=== PATIENT | female | born 1980 | race American Indian/Alaskan Native ===

== ENCOUNTER 2017-09-29 00:24 | Emergency (ER) | payer OTHER ==
[2017-09-29 00:41] VITALS: BP 139/91
[2017-09-29 03:28] LABS: Basophils % (Auto) 0.6 % (0.0-1.8); Eosinophils # (Auto) 0.1 K/mm3 (0.0-0.4); Eosinophils % (Auto) 0.9 % (0.0-4.3); Hematocrit 35.6 % (30.3-42.9); Hemoglobin 11.7 gm/dl (10.1-14.3); Lymphocytes # (Auto) 2.2 K/mm3 (1.2-5.4); Lymphocytes % (Auto) 27.2 % (13.4-35.0); Mean Corpuscular HGB Conc 33 % (30-34); Mean Corpuscular Hemoglobin 29 pg (28-32); Mean Corpuscular Volume 87 fl (79-97); Monocytes # (Auto) 0.7 K/mm3 (0.0-0.8); Monocytes % (Auto) 8.1 % (0.0-7.3); Platelet Count 236 K/mm3 (140-440); Red Blood Count 4.07 M/mm3 (3.65-5.03)
[2017-09-29 03:37] LABS: INR 2.06 (0.87-1.13)
[2017-09-29 03:38] LABS: Partial Thromboplastin Time 48.9 Sec. (24.2-36.6)
[2017-09-29 04:03] LABS: Calcium 9.4 mg/dL (8.4-10.2); Hemolysis Index 7
[2017-09-29 04:23] LABS: BUN/Creatinine Ratio 18; Blood Urea Nitrogen 11 mg/dL (7-17)
== END 2017-09-29 03:00 | disposition left against medical advice (07) ==
LOC: ED 00:24
DX: R53.1 Weakness (principal); Z53.21 Procedure and treatment not carried out due to patient leaving prior to being seen by health care provider
CPT/HCPCS: 36415; 80048; 85025; 85610; 85730

== ENCOUNTER 2020-01-16 20:31 | Emergency (ER) | payer SELFPAY ==
[2020-01-17] MEDS ORDERED: SODIUM CHLORIDE 0.9% 1000 ML 1,000 ML IV ONE ×2 (00:04→03:13)
[2020-01-17] MEDS ORDERED: MORPHINE 4 MG/1 ML INJ IV ONE (00:04)
[2020-01-17] MEDS ORDERED: ONDANSETRON 4 MG/2 ML INJ IV ONE (00:04)
[2020-01-17] MEDS ORDERED: FAMOTIDINE 20 MG/2 ML INJ IV ONE (00:04)
--- NOTE | 2020-01-17 00:41 | Emergency Department Report ---
ED N/V/D HPI - General Chief complaint: Nausea/Vomiting/Diarrhea Stated complaint: VOMITING, UNABLE TO EAT OR DRINK X'S 2 DAYS Source: patient Mode of arrival: Ambulatory Limitations: No Limitations - History of Present Illness Initial comments: Patient is a 39-year-old -[place] female with a history of PE and status post gastric sleeve surgery for weight loss who presents to the ED with complaint of acute onset persistent diffuse abdominal pain with nausea and vomiting for the last 2 days. Patient states that she has not been able to keep anything down including food and water since the onset of the symptoms. Patient states that no one else at home is had similar symptoms except herself. Patient denies dizziness, syncope, headache, chest pain, lightheadedness, fever, chills, cough, sore throat, dysuria, urinary frequency and urgency, vaginal discharge or vaginal bleeding, back pain, hematemesis, hematochezia or dyspareunia. MD complaint: nausea, vomiting, abdominal pain -: Sudden, week(s) (1) Description of Vomiting: food contents, watery Associated Abdominal Pain: Yes (diffuse) Location: diffuse, epigastric Radiation: none Severity: severe Pain Scale: 8 Quality: cramping, sharp Consistency: constant Improves with: none Worsens with: eating, vomiting Context: possible food poisoning Associated Symptoms: denies other symptoms, myalgias, loss of appetite, malaise, nausea/vomiting. denies: chest pain, cough, diaphoresis, fever/chills, headaches, rash, dysuria, shortness of breath, syncope, weakness, other - Related Data Previous Rx's Medication Instructions Recorded Last Taken Type Dicyclomine [Bentyl] 20 mg PO Q6H PRN #30 tablet 01/17/20 Unknown Rx Famotidine [Pepcid] 20 mg PO BID #60 tablet 01/17/20 Unknown Rx Ondansetron [Zofran Odt] 4 mg PO Q6HR PRN #20 tab.rapdis 01/17/20 Unknown Rx Promethazine [Phenergan] 25 mg KS Q6HR PRN #15 supp.rect 01/17/20 Unknown Rx Allergies Allergy/AdvReac Type Severity Reaction Status Date / Time IV contrast Allergy Hives Uncoded 09/29/17 02:46 ED Review of Systems ROS: Stated complaint: VOMITING, UNABLE TO EAT OR DRINK X'S 2 DAYS Other details as noted in HPI Constitutional: denies: chills, fever Eyes: denies: eye pain, eye discharge, vision change ENT: denies: ear pain, throat pain Respiratory: denies: cough, shortness of breath, wheezing Cardiovascular: denies: chest pain, palpitations Endocrine: no symptoms reported Gastrointestinal: abdominal pain, nausea, vomiting. denies: diarrhea Genitourinary: denies: urgency, dysuria, discharge Musculoskeletal: denies: back pain, joint swelling, arthralgia Skin: denies: rash, lesions Neurological: denies: headache, weakness, paresthesias Psychiatric: denies: anxiety, depression Hematological/Lymphatic: denies: easy bleeding, easy bruising ED Past Medical Hx - Past Medical History Additional medical history: PE - Surgical History Additional Surgical History: Gastic Sleeve - Social History Smoking Status: Never Smoker Substance Use Type: None - Medications Home Medications: Home Medications Medication Instructions Recorded Confirmed Last Taken Type Dicyclomine [Bentyl] 20 mg PO Q6H PRN #30 tablet 01/17/20 Unknown Rx Famotidine [Pepcid] 20 mg PO BID #60 tablet 01/17/20 Unknown Rx Ondansetron [Zofran Odt] 4 mg PO Q6HR PRN #20 tab.rapdis 01/17/20 Unknown Rx Promethazine [Phenergan] 25 mg KS Q6HR PRN #15 supp.rect 01/17/20 Unknown Rx ED Physical Exam - General Limitations: No Limitations General appearance: alert, in no apparent distress - Head Head exam: Present: atraumatic, normocephalic, normal inspection - Eye Eye exam: Present: normal appearance, PERRL, EOMI Pupils: Present: normal accommodation - ENT ENT exam: Present: normal exam, normal orophraynx, mucous membranes moist, TM's normal bilaterally, normal external ear exam - Neck Neck exam: Present: normal inspection, full ROM. Absent: tenderness - Respiratory Respiratory exam: Present: normal lung sounds bilaterally. Absent: respiratory distress, wheezes, rales, rhonchi, chest wall tenderness, decreased breath s ounds, prolonged expiratory - Cardiovascular Cardiovascular Exam: Present: normal rhythm, tachycardia, normal heart sounds. Absent: systolic murmur, diastolic murmur, rubs, gallop - GI/Abdominal GI/Abdominal exam: Present: soft, tenderness (Palpable diffuse abdominal tenderness, worse in the epigastric area), normal bowel sounds. Absent: guarding, rebound, hyperactive bowel sounds, organomegaly, mass, bruit - Extremities Exam Extremities exam: Present: normal inspection, full ROM, normal capillary refill - Back Exam Back exam: Present: normal inspection, full ROM. Absent: tenderness, CVA tenderness (R), CVA tenderness (L), muscle spasm, paraspinal tenderness, vertebral tenderness - Neurological Exam Neurological exam: Present: alert, oriented X3, CN II-XII intact, normal gait, reflexes normal - Psychiatric Psychiatric exam: Present: normal affect, normal mood - Skin Skin exam: Present: warm, dry, intact, normal color. Absent: rash ED Course Vital Signs 01/16/20 01/17/20 01/17/20 20:58 01:06 01:36 Temperature 98.3 F Pulse Rate 105 H Respiratory 20 20 20 Rate Blood Pressure 117/86 O2 Sat by Pulse 97 Oximetry ED Medical Decision Making - Lab Data Result diagrams: 01/17/20 00:29 01/17/20 00:29 - Radiology Data Radiology results: report reviewed, image reviewed Findings [facility] [address] [place] [address] Cat Scan Report Signed Patient: FOUZIA MERCEDES MR#: [id number] : 1980 Acct:[id number] Age/Sex: 39 / F ADM Date: 01/16/20 Loc: ED Attending Dr: Ordering Physician: DENI AZAR Date of Service: 01/17/20 Procedure(s): CT abdomen pelvis wo con Accession Number(s): [id number] cc: DENI AZAR CT ABDOMEN AND PELVIS WITHOUT IV CONTRAST INDICATION: Patient complains of abdominal pain with nausea and vomiting.. COMPARISON: None available. TECHNIQUE: All CT scans at this facility use dose modulation, automated exposure control, iterative reconstruction or weight based dosing, when appropriate, to reduce radiation dose to as low as reasonably achievable. FINDINGS: Lung Bases: No significant abnormality. Skeletal System: No acute abnormality. ABDOMEN: Liver: No significant abnormality. Gallbladder: No significant abnormality. Bile Ducts: No significant abnormality. Pancreas: No significant abnormality. Spleen: No significant abnormality. Adrenals: No significant abnormality. Right Kidney: No significant abnormality. Left Kidney: No significant abnormality. Upper GI tract: The patient is status post gastric sleeve procedure. No dilated loops of small bowel. Lymph Nodes: No significant adenopathy. Aorta: No significant abnormality. Additional Findings: There is focal fat necrosis in the mesentery (axial series 2 image 66). PELVIS: Colon: No acute abnormality. There is a 3.8 cm lipoma at the distal transverse colon (coronal image 42). There is mild diverticulosis. Urinary Bladder and Distal Ureters: No significant abnormality. Appendix: Not visualized. Lymph Nodes: No significant adenopathy. Additional Findings: None. IMPRESSION: 1. Within the limitations of non contrast technique, no acute process in the abdomen or pelvis. 2. Incidental findings, as above. Signer Name: Anthony Landa MD Signed: 01/17/2020 1:10 AM Workstation Name: [id number] Transcribed By: TERESA Dictated By: Anthony Landa MD Electronically Authenticated By: Anthony Landa MD Signed Date/Time: 01/17/20109 DD/ 6 TD/TT: - Medical Decision Making This is a 39-year-old -[place] female with a history of PE and status post gastric sleeve surgery for weight loss who presents to the ED with complaint of acute onset persistent diffuse abdominal pain with nausea and vomiting for the last 2 days. Patient states that she has not been able to keep anything down including food and water since the onset of the symptoms. Patient states that no one else at home is had similar symptoms except herself. In the ED, patient is alert and oriented x3 and is not in distress but tachycardic and afebrile in triage. Lab test results were reviewed and showed mild hypokalemia of 3.4 mmol/L and mildly elevated lipase level of 70. The rest of the lab test results are nonactionable. The patient however declined to gi ve urine for urinalysis despite pleas to do so. Abdomen pelvis CT scan without contrast showed no acute process in the abdomen or pelvis. Patient was treated with normal saline 2 L IV bolus x1, also given antiemetics, antacids and pain medications. On reevaluation, patient's nausea and vomiting as well as pain is well controlled medications. Patient passed oral fluid challenge in the ED, and patient tachycardia also resolved prior to being discharged. Patient was therefore discharged home on medications including antiemetics, antispasmodics as well as antacids and was advised to maintain a clear liquid diet for 12 to 24 hours, take medication as advised and drink plenty of fluids. Patient was advised to return to the ED immediately if symptoms get worse. Patient was otherwise advised to follow-up with her primary care physician in 3 to 5 days for reevaluation. - Differential Diagnosis GERD; gastroenteritis; appendicitis; UTI; ovarian cyst; dehydration Critical care attestation.: If time is entered above; I have spent that time in minutes in the direct care of this critically ill patient, excluding procedure time. ED Disposition Clinical Impression: Nausea and vomiting in adult patient, Viral gastroenteritis Abdominal pain Qualifiers: Abdominal location: generalized Qualified Code(s): R10.84 - Generalized abdominal pain GERD (gastroesophageal reflux disease) Qualifiers: Esophagitis presence: without esophagitis Qualified Code(s): K21.9 - Gastro- esophageal reflux disease without esophagitis Disposition: TO HOME OR SELFCARE Is pt being admited?: No Does the pt Need Aspirin: No Condition: Stable Instructions: Acute Nausea and Vomiting (ED), Gastroesophageal Reflux Disease (ED), Acute Abdominal Pain (ED) Additional Instructions: All lab test results are unremarkable. Abdomen pelvis CT scan without contrast showed no acute abnormalities. Therefore maintain a clear liquid diet for 12 to 24 hours, take medication as needed for pain and for nausea and vomiting as well as the antacid. Follow-up with your primary care physician in 5 to 7 days for reevaluation or return to the ED immediately if symptoms get worse. Prescriptions: Dicyclomine [Bentyl] 20 mg PO Q6H PRN #30 tablet PRN Reason: Abdominal pain Famotidine [Pepcid] 20 mg PO BID #60 tablet Promethazine [Phenergan] 25 mg KS Q6HR PRN #15 supp.rect PRN Reason: Nausea Ondansetron [Zofran Odt] 4 mg PO Q6HR PRN #20 tab.rapdis PRN Reason: Nausea Referrals: [facility] [Provider Group] - 3-5 Days Forms: Work/School Release Form(ED) Time of Disposition: 05:26 Print Language: FAROESE
[2020-01-17 01:13] LABS: Basophils % (Auto) 0.9 % (0.0-1.8); Eosinophils # (Auto) 0.1 K/mm3 (0.0-0.4); Eosinophils % (Auto) 2.3 % (0.0-4.3); Hematocrit 39.8 % (30.3-42.9); Hemoglobin 12.9 gm/dl (10.1-14.3); Lymphocytes # (Auto) 1.7 K/mm3 (1.2-5.4); Lymphocytes % (Auto) 34.9 % (13.4-35.0); Mean Corpuscular HGB Conc 32 % (30-34); Mean Corpuscular Volume 88 fl (79-97); Monocytes # (Auto) 0.7 K/mm3 (0.0-0.8); Monocytes % (Auto) 15.3 % (0.0-7.3); Platelet Count 177 K/mm3 (140-440); Red Blood Count 4.53 M/mm3 (3.65-5.03); Red Cell Distribution Width 17.7 % (13.2-15.2)
--- NOTE | 2020-01-17 01:15 | Cat Scan Report ---
CT ABDOMEN AND PELVIS WITHOUT IV CONTRAST INDICATION: Patient complains of abdominal pain with nausea and vomiting.. COMPARISON: None available. TECHNIQUE: All CT scans at this facility use dose modulation, automated exposure control, iterative reconstructi on or weight based dosing, when appropriate, to reduce radiation dose to as low as reasonably achieva ble. FINDINGS: Lung Bases: No significant abnormality. Skeletal System: No acute abnormality. ABDOMEN: Liver: No significant abnormality. Gallbladder: No significant abnormality. Bile Ducts: No significant abnormality. Pancreas: No significant abnormality. Spleen: No significant abnormality. Adrenals: No significant abnormality. Right Kidney: No significant abnormality. Left Kidney: No significant abnormality. Upper GI tract: The patient is status post gastric sleeve procedure. No dilated loops of small bowel. Lymph Nodes: No significant adenopathy. Aorta: No significant abnormality. Additional Findings: There is focal fat necrosis in the mesentery (axial series 2 image 66). PELVIS: Colon: No acute abnormality. There is a 3.8 cm lipoma at the distal transverse colon (coronal image 42). There is mild diverticulosis. Urinary Bladder and Distal Ureters: No significant abnormality. Appendix: Not visualized. Lymph Nodes: No significant adenopathy. Additional Findings: None. IMPRESSION: 1. Within the limitations of non contrast technique, no acute process in the abdomen or pelvis. 2. Incidental findings, as above. Signer Name: Anthony Landa MD Signed: 01/17/2020 1:10 AM Workstation Name: [id number]
[2020-01-17 01:28] LABS: Alanine Aminotransferase 37 units/L (7-56); Albumin 4.2 g/dL (3.9-5); BUN/Creatinine Ratio 11; Blood Urea Nitrogen 9 mg/dL (7-17); Calcium 9.7 mg/dL (8.4-10.2); Hemolysis Index 10
[2020-01-17] MEDS ORDERED: SODIUM CHLORIDE 0.9% 1000 ML 1,000 ML ONE (03:12)
[2020-01-17] MEDS ORDERED: PROCHLORPERAZINE EDISYLATE 10 MG/2 ML VIAL IV ONE (03:13)
[2020-01-17 05:22] VITALS: BP 104/77
== END 2020-01-17 06:01 | disposition home or self-care (01) ==
LOC: ED 20:31
DX: K21.9 Gastro-esophageal reflux disease without esophagitis (principal); A08.4 Viral intestinal infection, unspecified; R11.2 Nausea with vomiting, unspecified; R10.9 Unspecified abdominal pain; Z79.899 Other long term (current) drug therapy; Z91.041 Radiographic dye allergy status; Z98.890 Other specified postprocedural states
CPT/HCPCS: 36415; 74176; 80053; 83690; 84703; 85025; 96361; 96374; 96375; 99284; J0780; J2270; J2405; J7030

== ENCOUNTER 2020-07-08 18:15 | Emergency (ER) | payer BC, OTHER ==
[2020-07-08 18:21] VITALS: BP 117/88
--- NOTE | 2020-07-08 19:26 | Event Note ---
ED Screening Note Date of service: 07/08/20 Time: 19:23 ED Screening Note: pt c/o abnl vag bleeding since last week wednesday. She states she had normal MC 2 weeks ago. 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 She denies any CP or SOB. She is s/p tubal ligation and does not think she is . This initial assessment/diagnostic orders/clinical plan/treatment(s) is/are s ubject to change based on patients health status, clinical progression and re- assessment by fellow clinical providers in the ED. Further treatment and workup at subsequent clinical providers discretion. Patient/guardian urged not to elope from the ED as their condition may be serious if not clinically assessed and managed. Initial orders include: Labs
[2020-07-08 20:00] LABS: Basophils % (Auto) 0.4 % (0.0-1.8); Eosinophils % (Auto) 0.8 % (0.0-4.3); Hematocrit 35.8 % (30.3-42.9); Hemoglobin 11.4 gm/dl (10.1-14.3); Lymphocytes % (Auto) 32.2 % (13.4-35.0); Mean Corpuscular HGB Conc 32 % (30-34); Mean Corpuscular Volume 89 fl (79-97); Monocytes # (Auto) 0.6 K/mm3 (0.0-0.8); Monocytes % (Auto) 10.1 % (0.0-7.3); Platelet Count 256 K/mm3 (140-440); Red Blood Count 4.04 M/mm3 (3.65-5.03); Red Cell Distribution Width 15.5 % (13.2-15.2)
[2020-07-08 20:23] LABS: Alanine Aminotransferase 9 units/L (7-56); Albumin 4.1 g/dL (3.9-5); Blood Urea Nitrogen 7 mg/dL (7-17); Calcium 9.3 mg/dL (8.4-10.2); Hemolysis Index 6
[2020-07-08 20:32] LABS: BUN/Creatinine Ratio 14
[2020-07-08 21:03] LABS: Bacteria,Urine 1+ /HPF (Negative); Bilirubin,Urine NEG (Negative); Blood,Urine LG (Negative); Color,Urine Amber (Yellow); Mucus,Urine 3+ /HPF; RBC,Urine > 182.0 /HPF (0.0-6.0)
[2020-07-08] MEDS ORDERED: ONDANSETRON 4 MG/2 ML INJ IV ONE (22:01)
[2020-07-08] MEDS ORDERED: KETOROLAC 30 MG/1 ML INJ IV ONE (22:01)
[2020-07-08] MEDS ORDERED: SODIUM CHLORIDE 0.9% 1000 ML 1,000 ML IV ONE (22:01)
[2020-07-08] MEDS ORDERED: MORPHINE 4 MG/1 ML INJ IV ONE (22:10)
[2020-07-08] MEDS ORDERED: diphenhydrAMINE 50 MG/ML VIAL IV ONE (23:16)
--- NOTE | 2020-07-09 00:19 | Emergency Department Report ---
ED Female HPI - General Chief complaint: Vaginal Bleeding Stated complaint: [id number] SIDE PAIN Time Seen by Provider: 07/08/20 21:56 Source: patient Mode of arrival: Ambulatory Limitations: No Limitations - History of Present Illness Initial comments: This is a 39-year-old female nontoxic, well nourished in appearance, no acute signs of distress presents to the ED with c/o of dysuria, vaginal bleeding, left flank pain with radiation to left lateral chest area times several days. Patient stated has history of PE and has been taking Xarelto which stopped several days ago. Patient stated had blood work done in [facility] several days ago and had a D-dimer that was significantly elevated but did not follow-up with any primary care doctor or any provider. Patient otherwise stated has been prescribed Macrobid and stated to start taking yesterday but is unable to due to nausea and vomiting. Patient requested for change of medication such as Bactrim which she takes for previous UTIs and helped her. Patient otherwise denies any shortness of breath. Patient denies any vaginal discharge, ulcers or lesions. Patient denies any abdominal or pelvic pain. Patient denies any chest pain, shortness of breathe, fever, chills, headache, back pain, numbness, tingling, stiff neck. Patient denies any other urinary symptoms. Patient denies any allergies or significant past medical history besides PE. Patient stated is currently on her menstrual cycle that started 07/01/2020. MD Complaint: vaginal bleeding, dysuria -: week(s) Radiation: other (left chest) Severity: mild Severity scale (0 -10): 8 Quality: burning, aching Consistency: constant Improves with: none Worsens with: urination Are you Now?: No Associated Symptoms: vaginal bleeding, nausea/vomiting, dysuria, hematuria. denies: vaginal discharge, abdominal pain, fever/chills, headaches, loss of appetite, rash, seizure, shortness of breath, syncope, weakness - Related Data Previous Rx's Medication Instructions Recorded Last Taken Type Dicyclomine [Bentyl] 20 mg PO Q6H PRN #30 tablet 01/17/20 Unknown Rx Famotidine [Pepcid] 20 mg PO BID #60 tablet 01/17/20 Unknown Rx Ondansetron [Zofran Odt] 4 mg PO Q6HR PRN #20 tab.rapdis 01/17/20 Unknown Rx Promethazine [Phenergan] 25 mg TN Q6HR PRN #15 supp.rect 01/17/20 Unknown Rx Naproxen 500 mg PO Q12H PRN #12 tablet 07/09/20 Unknown Rx Ondansetron [Zofran Odt] 4 mg PO Q12H PRN #12 tab.rapdis 07/09/20 Unknown Rx Sulfamethoxazole/Trimethoprim 1 each PO BID #14 tablet 07/09/20 Unknown Rx [Bactrim DS TAB] Allergies Allergy/AdvReac Type Severity Reaction Status Date / Time IV contrast Allergy Hives Uncoded 07/08/20 18:18 ED Review of Systems ROS: Stated complaint: [id number] SIDE PAIN Other details as noted in HPI Comment: All other systems reviewed and negative Constitutional: denies: chills, fever Eyes: denies: eye pain, eye discharge, vision change ENT: denies: ear pain, throat pain Respiratory: denies: cough, shortness of breath, wheezing Cardiovascular: chest pain. denies: palpitations Endocrine: no symptoms reported Gastrointestinal: nausea, vomiting. denies: abdominal pain, diarrhea, constipation, hematemesis, melena, hematochezia Genitourinary: dysuria, abnormal menses. denies: urgency, frequency, hematuria, discharge Musculoskeletal: denies: back pain, joint swelling, arthralgia Skin: denies: rash, lesions Neurological: denies: headache, weakness, paresthesias Psychiatric: denies: anxiety, depression Hematological/Lymphatic: denies: easy bleeding, easy bruising ED Past Medical Hx - Past Medical History Additional medical history: PE - Surgical History Additional Surgical History: Gastic Sleeve - Social History Smoking Status: Never Smoker Substance Use Type: None - Medications Home Medications: Home Medications Medication Instructions Recorded Confirmed Last Taken Type Dicyclomine [Bentyl] 20 mg PO Q6H PRN #30 tablet 01/17/20 Unknown Rx Famotidine [Pepcid] 20 mg PO BID #60 tablet 01/17/20 Unknown Rx Ondansetron [Zofran Odt] 4 mg PO Q6HR PRN #20 tab.rapdis 01/17/20 Unknown Rx Promethazine [Phenergan] 25 mg TN Q6HR PRN #15 supp.rect 01/17/20 Unknown Rx Naproxen 500 mg PO Q12H PRN #12 tablet 07/09/20 Unknown Rx Ondansetron [Zofran Odt] 4 mg PO Q12H PRN #12 tab.rapdis 07/09/20 Unknown Rx Sulfamethoxazole/Trimethoprim 1 each PO BID #14 tablet 07/09/20 Unknown Rx [Bactrim DS TAB] ED Physical Exam - General Limitations: No Limitations General appearance: alert, in no apparent distress - Head Head exam: Present: atraumatic, normocephalic - Eye Eye exam: Present: normal appearance - Neck Neck exam: Present: normal inspection, full ROM. Absent: tenderness, meningismus, lymphadenopathy - Respiratory Respiratory exam: Present: normal lung sounds bilaterally. Absent: respiratory distress, wheezes, rales, rhonchi, stridor, chest wall tenderness, accessory muscle use, decreased breath sounds, prolonged expiratory - Cardiovascular Cardiovascular Exam: Present: regular rate, normal rhythm, normal heart sounds. Absent: bradycardia, tachycardia, irregular rhythm, systolic murmur, diastolic murmur, rubs, gallop - GI/Abdominal GI/Abdominal exam: Present: soft, normal bowel sounds. Absent: distended, tenderness, guarding, rebound, rigid, diminished bowel sounds - Extremities Exam Extremities exam: Present: normal inspection, full ROM - Back Exam Back exam: Present: normal inspection, full ROM. Absent: tenderness, CVA tenderness (R), CVA tenderness (L), muscle spasm, paraspinal tenderness, vertebral tenderness, rash noted - Neurological Exam Neurological exam: Present: alert, oriented X3, normal gait - Psychiatric Psychiatric exam: Present: normal affect, normal mood - Skin Skin exam: Present: warm, dry, intact, normal color. Absent: rash ED Course Vital Signs 07/08/20 18:18 Temperature 98.9 F Pulse Rate 90 Respiratory 16 Rate Blood Pressure 117/88 O2 Sat by Pulse 100 Oximetry - Reevaluation(s) Reevaluation #1: 07/09/20 00:20 Patient is speaking in full sentences with no signs of distress noted. ED Medical Decision Making - Lab Data Result diagrams: 07/08/20 19:28 07/08/20 19:28 Lab Results 07/08/20 07/08/20 07/08/20 Range/Units 19:28 19:28 19:28 WBC 6.2 (4.5-11.0) K/mm3 RBC 4.04 (3.65-5.03) M/mm3 Hgb 11.4 (10.1-14.3) gm/dl Hct 35.8 (30.3-42.9) % MCV 89 (79-97) fl MCH 28 (28-32) pg MCHC 32 (30-34) % RDW 15.5 H (13.2-15.2) % Plt Count 256 (140-440) K/mm3 Lymph % (Auto) 32.2 (13.4-35.0) % [place] % (Auto) 10.1 H (0.0-7.3) % Eos % (Auto) 0.8 (0.0-4.3) % Baso % (Auto) 0.4 (0.0-1.8) % Lymph # (Auto) 2.0 (1.2-5.4) K/mm3 [place] # (Auto) 0.6 (0.0-0.8) K/mm3 Eos # (Auto) 0.0 (0.0-0.4) K/mm3 Baso # (Auto) 0.0 (0.0-0.1) K/mm3 Seg Neutrophils % 56.5 (40.0-70.0) % Seg Neutrophils # 3.5 (1.8-7.7) K/mm3 D-Dimer (0-234) ng/mlDDU Sodium 139 (137-145) mmol/L Potassium 3.7 (3.6-5.0) mmol/L Chloride 104.1 (98-107) mmol/L Carbon Dioxide 27 (22-30) mmol/L Anion Gap 12 mmol/L BUN 7 (7-17) mg/dL Creatinine 0.5 L (0.6-1.2) mg/dL Estimated GFR > 60 ml/min BUN/Creatinine Ratio 14 % Glucose 92 (65-100) mg/dL Calcium 9.3 (8.4-10.2) mg/dL Total Bilirubin 0.50 (0.1-1.2) mg/dL AST 15 (5-40) units/L ALT 9 (7-56) units/L Alkaline Phosphatase 74 (35-129) units/L Troponin T (0.00-0.029) ng/mL Total Protein 7.3 (6.3-8.2) g/dL Albumin 4.1 (3.9-5) g/dL Albumin/Globulin Ratio 1.3 % Lipase (13-60) units/L HCG, Qual Negative (Negative) Urine Color (Yellow) Urine Turbidity (Clear) Urine pH (5.0-7.0) Ur Specific [place] (1.003-1.030) Urine Protein (Negative) mg/dL Urine Glucose (UA) (Negative) mg/dL Urine Ketones (Negative) mg/dL Urine Blood (Negative) Urine Nitrite (Negative) Urine Bilirubin (Negative) Urine Urobilinogen (<2.0) mg/dL Ur Leukocyte Esterase (Negative) Urine WBC (Auto) (0.0-6.0) /HPF Urine RBC (Auto) (0.0-6.0) /HPF U Epithel Cells (Auto) (0-13.0) /HPF Urine Bacteria (Auto) (Negative) /HPF Urine Mucus /HPF Urine Yeast (Budding) /HPF 07/08/20 07/08/20 07/08/20 Range/Units 19:28 19:28 20:00 WBC (4.5-11.0) K/mm3 RBC (3.65-5.03) M/mm3 Hgb (10.1-14.3) gm/dl Hct (30.3-42.9) % MCV (79-97) fl MCH (28-32) pg MCHC (30-34) % RDW (13.2-15.2) % Plt Count (140-440) K/mm3 Lymph % (Auto) (13.4-35.0) % [place] % (Auto) (0.0-7.3) % Eos % (Auto) (0.0-4.3) % Baso % (Auto) (0.0-1.8) % Lymph # (Auto) (1.2-5.4) K/mm3 [place] # (Auto) (0.0-0.8) K/mm3 Eos # (Auto) (0.0-0.4) K/mm3 Baso # (Auto) (0.0-0.1) K/mm3 Seg Neutrophils % (40.0-70.0) % Seg Neutrophils # (1.8-7.7) K/mm3 D-Dimer (0-234) ng/mlDDU Sodium (137-145) mmol/L Potassium (3.6-5.0) mmol/L Chloride (98-107) mmol/L Carbon Dioxide (22-30) mmol/L Anion Gap mmol/L BUN (7-17) mg/dL Creatinine (0.6-1.2) mg/dL Estimated GFR ml/min BUN/Creatinine Ratio % Glucose (65-100) mg/dL Calcium (8.4-10.2) mg/dL Total Bilirubin (0.1-1.2) mg/dL AST (5-40) units/L ALT (7-56) units/L Alkaline Phosphatase (35-129) units/L Troponin T < 0.010 (0.00-0.029) ng/mL Total Protein (6.3-8.2) g/dL Albumin (3.9-5) g/dL Albumin/Globulin Ratio % Lipase 33 (13-60) units/L HCG, Qual (Negative) Urine Color Mindy (Yellow) Urine Turbidity Slightly-cloudy (Clear) Urine pH 5.0 (5.0-7.0) Ur Specific [place] 1.024 (1.003-1.030) Urine Protein 100 mg/dl (Negative) mg/dL Urine Glucose (UA) Neg (Negative) mg/dL Urine Ketones 20 (Negative) mg/dL Urine Blood Lg (Negative) Urine Nitrite Neg (Negative) Urine Bilirubin Neg (Negative) Urine Urobilinogen 4.0 (<2.0) mg/dL Ur Leukocyte Esterase Tr (Negative) Urine WBC (Auto) 60.0 H (0.0-6.0) /HPF Urine RBC (Auto) > 182.0 (0.0-6.0) /HPF U Epithel Cells (Auto) 9.0 (0-13.0) /HPF Urine Bacteria (Auto) 1+ (Negative) /HPF Urine Mucus 3+ /HPF Urine Yeast (Budding) Few /HPF 07/08/20 Range/Units 22:16 WBC (4.5-11.0) K/mm3 RBC (3.65-5.03) M/mm3 Hgb (10.1-14.3) gm/dl Hct (30.3-42.9) % MCV (79-97) fl MCH (28-32) pg MCHC (30-34) % RDW (13.2-15.2) % Plt Count (140-440) K/mm3 Lymph % (Auto) (13.4-35.0) % [place] % (Auto) (0.0-7.3) % Eos % (Auto) (0.0-4.3) % Baso % (Auto) (0.0-1.8) % Lymph # (Auto) (1.2-5.4) K/mm3 [place] # (Auto) (0.0-0.8) K/mm3 Eos # (Auto) (0.0-0.4) K/mm3 Baso # (Auto) (0.0-0.1) K/mm3 Seg Neutrophils % (40.0-70.0) % Seg Neutrophils # (1.8-7.7) K/mm3 D-Dimer 946.71 H (0-234) ng/mlDDU Sodium (137-145) mmol/L Potassium (3.6-5.0) mmol/L Chloride (98-107) mmol/L Carbon Dioxide (22-30) mmol/L Anion Gap mmol/L BUN (7-17) mg/dL Creatinine (0.6-1.2) mg/dL Estimated GFR ml/min BUN/Creatinine Ratio % Glucose (65-100) mg/dL Calcium (8.4-10.2) mg/dL Total Bilirubin (0.1-1.2) mg/dL AST (5-40) units/L ALT (7-56) units/L Alkaline Phosphatase (35-129) units/L Troponin T (0.00-0.029) ng/mL Total Protein (6.3-8.2) g/dL Albumin (3.9-5) g/dL Albumin/Globulin Ratio % Lipase (13-60) units/L HCG, Qual (Negative) Urine Color (Yellow) Urine Turbidity (Clear) Urine pH (5.0-7.0) Ur Specific [place] (1.003-1.030) Urine Protein (Negative) mg/dL Urine Glucose (UA) (Negative) mg/dL Urine Ketones (Negative) mg/dL Urine Blood (Negative) Urine Nitrite (Negative) Urine Bilirubin (Negative) Urine Urobilinogen (<2.0) mg/dL Ur Leukocyte Esterase (Negative) Urine WBC (Auto) (0.0-6.0) /HPF Urine RBC (Auto) (0.0-6.0) /HPF U Epithel Cells (Auto) (0-13.0) /HPF Urine Bacteria (Auto) (Negative) /HPF Urine Mucus /HPF Urine Yeast (Budding) /HPF - EKG Data 07/09/20 01:51 Atrial fibrillation at [address] or T wave abnormalities. Reviewed by Dr. Kelly and myself. - Radiology Data [address] [address] Cat Scan Report Signed Patient: FOUZIA MERCEDES MR#: [id number] : 1980 Acct:[id number] Age/Sex: 39 / F ADM Date: 07/08/20 Loc: ED Att ending Dr: Ordering Physician: ISABELLA ASHER NP Date of Service: 07/08/20 Procedure(s): CT angio chest Accession Number(s): [id number] cc: ISABELLA ASHER NP CTA CHEST WITH CONTRAST INDICATION / CLINICAL INFORMATION: left sided chest pain. TECHNIQUE: Axial CT images were obtained through the chest after injection of 100 cc of Omnipaque 350 IV contrast. 3 plane MIP and/or 3D reconstructions were produced. All CT scans at this location are performed using CT dose reduction for ALARA by means of automated exposure control. COMPARISON: None available. FINDINGS: PULMONARY ARTERIES: No pulmonary emboli. THORACIC AORTA: No significant abnormality. HEART: No significant abnormality. CORONARY ARTERY [place] CIFICATION: None. MEDIASTINUM / JAYME: No significant abnormality. PLEURA: No pleural effusion. No pneumothorax. LUNGS: No acute air space or interstitial disease. ADDITIONAL FINDINGS: None. SKELETAL STRUCTURES: No significant osseous abnormality. IMPRESSION: 1. No CT evidence for pulmonary embolism. 2. No acute findings. Signer Name: Luc Prater MD Signed: 07/09/2020 12:25 AM Workstation Name: [id number] Transcribed By: SS Dictated By: Luc Prater MD Electronically Authenticated By: Luc Prater MD Signed Date/Time: 07/09/2024 DD/ TD/TT: [address] [address] Cat Scan Report Signed Patient: FOUZIA MERCEDES MR#: [id number] : 1980 Acct:[id number] Age/Sex: 39 / F ADM Date: 07/08/20 Loc: ED Attending Dr: Ordering Physician: ISABELLA ASHER NP Date of Service: 07/08/20 Procedure(s): CT abdomen pelvis w con Accession Number(s): [id number] cc: ISABELLA ASHER NP CT ABDOMEN AND PELVIS WITH CONTRAST INDICATION / CLINICAL INFORMATION: left sided chest/flank/abd pain. TECHNIQUE: Axial CT images were obtained through the abdomen and pelvis after 100 cc of Omnipaque [address] scans at this location are performed using CT dose reduction for ALARA by means of automated exposure control. COMPARISON: CT scan dated 01/17/2020 FINDINGS: LOWER CHEST: No significant abnormality. LIVER: No significant abnormality. GALLBLADDER: No significant abnormality. BILE DUCTS: No significant abnormality. PANCREAS: No significant abnormality. SPLEEN: No significant abnormality. ADRENALS: No significant abnormality. RIGHT KIDNEY / URETER: No significant abnormality. LEFT KIDNEY / URETER: No significant abnormality. STOMACH / SMALL BOWEL: No significant abnormality. COLON: No significant abnormality. APPENDIX: Appendectomy. PERITONEUM: No free fluid. No free air. No fluid collection. LYMPH NODES: No significant adenopathy. AORTA / ARTERIES: No significant abnormality. IVC / VEINS: No significant abnormality. URINARY BLADDER: No significant abnormality. REPRODUCTIVE ORGANS: No significant abnormality. ADDITIONAL FINDINGS: There is a 2 cm focus of fat necrosis in the left upper quadrant. 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 SKELETAL SYSTEM: No acute abnormality IMPRESSION: 1. No significant abnormality. There is no obstruction, inflammation, or free air. There are no abnormal fluid collections. Signer Name: Luc Prater MD Signed: 07/09/2020 12:31 AM Workstation Name: [id number] Transcribed By: Dictated By: Luc Prater MD Electronically Authenticated By: Luc Prater MD Signed Date/Time: 07/09/20 0031 DD/ 0025 TD/TT: - Medical Decision Making 39-year-old female that presents with UTI and dysmenorrhea. Patient is stable and was examined by me. Labs has been obtained. Patient is notified of the lab results and CT imaging results with no questions noted by the patient. JENNIFER and HEART score 0 pints. EKG obtained and when asked patient about a-fib stated she has heard of that by her OBGYN and believes has this as her history. Chest xray dictated by the radiologist. PAtient is notified of the Xray report with no questions noted. Labs within normal limits. Negative troponin x2. Patient received treatment in the ED which stated symptoms are improving subsided. Patient was instructed to Follow-up with a primary care/numerical control machine machinist doctor in 2 days or if symptoms worsen and continue return to emergency room as soon as possible. At time of discharge, the patient does not seem toxic or ill in appearance. No acute signs of distress noted. Patient agrees to discharge treatment plan of care. No further questions noted by the patient. Critical care attestation.: If time is entered above; I have spent that time in minutes in the direct care of this critically ill patient, excluding procedure time. ED Disposition Clinical Impression: Dysmenorrhea UTI (urinary tract infection) Qualifiers: Urinary tract infection type: acute cystitis Hematuria presence: with hematuria Qualified Code(s): N30.01 - Acute cystitis with hematuria Atrial fibrillation Qualifiers: Atrial fibrillation type: unspecified Qualified Code(s): I48.91 - Unspecified atrial fibrillation Disposition: TO HOME OR SELFCARE Is pt being admited?: No Does the pt Need Aspirin: No Condition: Stable Instructions: Urinary Tract Infection, Adult, Dysmenorrhea, Atrial Fibrillation Additional Instructions: Follow-up with a numerical control machine machinist and THREAT ANALYST doctor in 2 days or if symptoms worsen and continue return to emergency room as soon as possible. Prescriptions: Sulfamethoxazole/Trimethoprim [Bactrim DS TAB] 1 each PO BID #14 tablet Naproxen 500 mg PO Q12H PRN #12 tablet PRN Reason: Pain , Severe (7-10) Ondansetron [Zofran Odt] 4 mg PO Q12H PRN #12 tab.rapdis PRN Reason: Nausea Referrals: [facility] [Provider [facility]] - 3-5 Days [facility] [Provider [facility]] - 3-5 Days SEE MENDEZ MD [Staff Physician] - 3-5 Days ADITI OZUNA MD [Primary Care Provider] - 3-5 Days PRIMARY [facility]ARE, [Referring] - 3-5 Days MICHELA HERNANDEZ MD [Staff Physician] - 07/11/20 Forms: Work/School Release Form(ED) Time of Disposition: 01:54
[2020-07-09] MEDS ORDERED: cefTRIAXone/NS 2 GM/100 ML 2 GM/100 ML BAG IV ONE (00:20)
--- NOTE | 2020-07-09 00:29 | Cat Scan Report ---
CTA CHEST WITH CONTRAST INDICATION / CLINICAL INFORMATION: left sided chest pain. TECHNIQUE: Axial CT images were obtained through the chest after injection of 100 cc of Omnipaque 350 IV contrast. 3 plane MIP and/or 3D reconstructions were produced. All CT scans at this location are performed using CT dose reduction for ALARA by means of automated exposure control. COMPARISON: None available. FINDINGS: PULMONARY ARTERIES: No pulmonary emboli. THORACIC AORTA: No significant abnormality. HEART: No significant abnormality. CORONARY ARTERY CALCIFICATION: None. MEDIASTINUM / JAYME: No significant abnormality. PLEURA: No pleural effusion. No pneumothorax. LUNGS: No acute air space or interstitial disease. ADDITIONAL FINDINGS: None. SKELETAL STRUCTURES: No significant osseous abnormality. IMPRESSION: 1. No CT evidence for pulmonary embolism. 2. No acute findings. Signer Name: Luc Prater MD Signed: 07/09/2020 12:25 AM Workstation Name: [id number]
--- NOTE | 2020-07-09 00:35 | Cat Scan Report ---
CT ABDOMEN AND PELVIS WITH CONTRAST INDICATION / CLINICAL INFORMATION: left sided chest/flank/abd pain. TECHNIQUE: Axial CT images were obtained through the abdomen and pelvis after 100 cc of Omnipaque [address] scans at this location are performed using CT dose reduction for ALARA by means of automated exposure control. COMPARISON: CT scan dated 01/17/2020 FINDINGS: LOWER CHEST: No significant abnormality. LIVER: No significant abnormality. GALLBLADDER: No significant abnormality. BILE DUCTS: No significant abnormality. PANCREAS: No significant abnormality. SPLEEN: No significant abnormality. ADRENALS: No significant abnormality. RIGHT KIDNEY / URETER: No significant abnormality. LEFT KIDNEY / URETER: No significant abnormality. STOMACH / SMALL BOWEL: No significant abnormality. COLON: No significant abnormality. APPENDIX: Appendectomy. PERITONEUM: No free fluid. No free air. No fluid collection. LYMPH NODES: No significant adenopathy. AORTA / ARTERIES: No significant abnormality. IVC / VEINS: No significant abnormality. URINARY BLADDER: No significant abnormality. REPRODUCTIVE ORGANS: No significant abnormality. ADDITIONAL FINDINGS: There is a 2 cm focus of fat necrosis in the left upper quadrant. 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 SKELETAL SYSTEM: No acute abnormality IMPRESSION: 1. No significant abnormality. There is no obstruction, inflammation, or free air. There are no abnor mal fluid collections. Signer Name: Luc Prater MD Signed: 07/09/2020 12:31 AM Workstation Name: [id number]
--- NOTE | 2020-07-09 10:39 | Electrocardiograph Report ---
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
== END 2020-07-09 02:35 | disposition home or self-care (01) ==
LOC: ED 18:15
DX: N39.0 Urinary tract infection, site not specified (principal); I48.91 Unspecified atrial fibrillation; N94.6 Dysmenorrhea, unspecified; R10.9 Unspecified abdominal pain; Z98.890 Other specified postprocedural states; Z79.899 Other long term (current) drug therapy; Z88.8 Allergy status to other drugs, medicaments and biological substances
CPT/HCPCS: 36415; 71275; 74177; 80053; 81001; 83690; 84484; 84703; 85025; 85379; 87086; 93005; 96361; 96365; 96375; 99284; J0696; J1200; J1885; J2270; J2405; J7030; Q9967